=== PATIENT | female | born 1995 | race Caucasian/White ===

== ENCOUNTER → 2017-04-23 | Outpatient (REF) | payer OTHER ==
[2017-04-23 13:24] LABS: AMORPHOUS SEDIMENT SMALL (NEGATIVE); APPEARANCE, URINE CLOUDY (CLEAR); BACTERIA, URINE AUTO 2+ (NEGATIVE); BILIRUBIN, URINE AUTO NEGATIVE (NEGATIVE); BLOOD, URINE BLOOD 2+ (NEGATIVE); COLOR, URINE YELLOW (YELLOW); GLUCOSE, URINE (UA) AUTO NEGATIVE (NEGATIVE); KETONE, URINE AUTO NEGATIVE (NEGATIVE); LEUKOCYTE ESTERASE, URINE AUTO 3+ (NEGATIVE); MUCUS, URINE SMALL (NEGATIVE); NITRITE, URINE AUTO POSITIVE (NEGATIVE); PROTEIN, URINE AUTO 1+ mg/dL (NEGATIVE); RBC, URINE AUTO 9 /HPF (0-3); SPECIFIC GRAVITY URINE AUTO 1.014 (1.002-1.035); SQUAMOUS EPITHELIAL CELL UR AU 0 /HPF (0-6); UROBILINOGEN, URINE AUTO 0.2 mg/dL (0.0-2.0); WBC, URINE AUTO TNTC /HPF (0-3)
== END ==
LOC: M LAB REF 12:48
DX: N39.0 Urinary tract infection, site not specified (principal)

== ENCOUNTER → 2017-12-08 | Outpatient (REF) | payer OTHER ==
[2017-12-08 15:23] LABS: ALBUMIN/GLOBULIN RATIO 1.33 (1.00-1.93); ALKALINE PHOSPHATASE 74 U/L (45-117); ALT/SGPT 21 U/L (12-78); ANION GAP 5 MEQ/L (8-16); AST/SGOT 14 U/L (7-37); BASO % 0.4 % (0.0-1.0); BILIRUBIN,TOTAL 0.1 MG/DL (0.2-1.0); BLOOD UREA NITROGEN 11 MG/DL (7-18); CALCIUM LEVEL 9.1 MG/DL (8.5-10.1); CARBON DIOXIDE LEVEL 27 MEQ/L (21-32); CHLORIDE LEVEL 108 MEQ/L (98-107); CHOLESTEROL LEVEL 121 MG/DL (<200); CHOLESTEROL RISK RATIO 2.326 (<5); CREATININE FOR GFR 0.74 MG/DL (0.55-1.30); EOS # 0.2 10^3/uL (0.0-0.50); EOS % 3.1 % (0.0-3.0); FREE T4 0.91 NG/DL (0.76-1.46); GLOMERULAR FILTRATION RATE > 60.0 (>60); GLUCOSE, FASTING 90 MG/DL (70-100); HDL CHOLESTEROL 52 MG/DL (>40); HEMATOCRIT 42.2 % (36.0-47.0); HEMOGLOBIN 13.9 g/dl (12.0-15.5); IMMATURE GRANULOCYTE % 0.1 % (0-3.0); LDL CHOLESTEROL 61 MG/DL (<100); LYMPH # 2.4 10^3/uL (1.5-6.5); LYMPH % 32.5 % (24.0-44.0); MEAN CORPUSCULAR HEMOGLOBIN 31.4 pg (27.0-33.0); MEAN CORPUSCULAR HGB CONC 32.9 g/dl (32.0-36.5); MEAN CORPUSCULAR VOLUME 95.3 fl (80.0-96.0); MONO # 0.5 10^3/uL (0.0-0.8); MONO % 6.8 % (0.0-5.0); NEUTROPHILS # 4.3 10^3/uL (1.8-7.7); NEUTROPHILS % 57.1 % (36.0-66.0); NON-HDL-C 69 MG/DL; PLATELET COUNT, AUTOMATED 235 10^3/uL (150-450); RED BLOOD COUNT 4.43 10^6/uL (4.00-5.40); RED CELL DISTRIBUTION WIDTH 12.8 % (11.5-14.5); SODIUM LEVEL 140 MEQ/L (136-145); TRIGLYCERIDES LEVEL 42 MG/DL (<150); WHITE BLOOD COUNT 7.5 10^3/uL (4.0-10.0)
[2017-12-08 15:25] LABS: TOTAL 25(OH) VITAMIN D 18.4 NG/ML (30.0-100.0)
== END ==
LOC: M SFHCSACK 09:12
DX: R53.83 Other fatigue (principal); Z13.220 Encounter for screening for lipoid disorders

== ENCOUNTER → 2018-01-16 | Outpatient (CLI) | payer OTHER | LOC: M WUC 10:42 | DX: M25.552 Pain in left hip (principal) | CPT/HCPCS: 73502 ==

== ENCOUNTER → 2018-04-17 | Outpatient (REF) | payer OTHER | LOC: M SFHCSACK 09:25 | PROVIDERS: ATTEND Physician Assistant | DX: E55.9 Vitamin D deficiency, unspecified (principal); Z53.8 Procedure and treatment not carried out for other reasons ==

== ENCOUNTER → 2018-04-21 | Outpatient (CLI) | payer OTHER ==
[2018-04-21 12:22] LABS: BASO % 0.5 % (0.0-1.0); EOS # 0.1 10^3/uL (0.0-0.50); EOS % 1.9 % (0.0-3.0); HEMATOCRIT 39.1 % (36.0-47.0); HEMOGLOBIN 12.8 g/dl (12.0-15.5); LYMPH # 2.1 10^3/uL (1.5-6.5); LYMPH % 33.9 % (24.0-44.0); MEAN CORPUSCULAR HEMOGLOBIN 31.2 pg (27.0-33.0); MEAN CORPUSCULAR HGB CONC 32.7 g/dl (32.0-36.5); MEAN CORPUSCULAR VOLUME 95.4 fl (80.0-96.0); MONO # 0.6 10^3/uL (0.0-0.8); MONO % 10.3 % (0.0-5.0); NEUTROPHILS # 3.3 10^3/uL (1.8-7.7); NEUTROPHILS % 53.2 % (36.0-66.0); PLATELET COUNT, AUTOMATED 228 10^3/uL (150-450); WHITE BLOOD COUNT 6.2 10^3/uL (4.0-10.0)
[2018-04-21 12:49] LABS: ALBUMIN 3.4 GM/DL (3.2-5.2); ALT/SGPT 18 U/L (12-78); BILIRUBIN,TOTAL 0.3 MG/DL (0.2-1.0); BLOOD UREA NITROGEN 8 MG/DL (7-18); CALCIUM LEVEL 8.6 MG/DL (8.5-10.1); CARBON DIOXIDE LEVEL 25 MEQ/L (21-32); CHLORIDE LEVEL 109 MEQ/L (98-107); CREATININE FOR GFR 0.65 MG/DL (0.55-1.30); GLOMERULAR FILTRATION RATE > 60.0 (>60); GLUCOSE, FASTING 86 MG/DL (70-100); POTASSIUM SERUM 4.7 MEQ/L (3.5-5.1); SODIUM LEVEL 140 MEQ/L (136-145); TOTAL 25(OH) VITAMIN D 28.2 NG/ML (30.0-100.0); TOTAL PROTEIN 6.4 GM/DL (6.4-8.2)
== END ==
LOC: M WUC 09:10
PROVIDERS: ATTEND Physician Assistant
DX: E55.9 Vitamin D deficiency, unspecified (principal)

== ENCOUNTER 2020-12-21 23:28 | Emergency (ER) | payer OTHER ==
[~2020-12-21] VITALS: Ht 167.6 cm; Wt 72.7 kg
[2020-12-21 23:29] VITALS: BP 113/62
== END 2020-12-21 23:53 | disposition left against medical advice (07) ==
LOC: M ED 23:28
DX: Z53.21 Procedure and treatment not carried out due to patient leaving prior to being seen by health care provider (principal)

== ENCOUNTER 2020-12-24 13:38 | Emergency (ER) | payer BC, OTHER ==
[~2020-12-24] VITALS: Ht 170.2 cm; Wt 72.1 kg
[2020-12-24 13:39] VITALS: BP 107/53
[2020-12-24] MEDS ORDERED: MULTTAB20 PO (13:47)
--- OUTSIDE RECORDS SUMMARY | 2020-12-24 14:34 | CCD ---
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 11/02/2020 Medications No Data in Section Social History Social History Element Description Concept Effective Date Smoking Status Unknown if ever smoked [id number] Immunizations No Data in Section Vital Signs No Data in Section Procedures Date Concept Id Description Targeted Site Concept Targeted Site Concept Type 10/30/2020 81038 Psychiatric Diagnostic Evaluation (Non-Medical) CPT Patient has no history of implantable de vices Encounters Encounter Start Date End Date Encounter Type Description Diagnosis Di agnosis Desc Location Author First Name Author Last Name Npid Taxonomy Cod e Taxonomy Desc Phone Number Location Addr1 Location Addr2 Location [facility] Location [facility] [id number] 10/30/2020 10/30/2020 31848 Psychiatric Tomasa gnostic Evaluation (Non-Medical) F43.9 Reaction to severe stress, unspecified [facility] Mike Skip [phone] [id number] 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
--- OUTSIDE RECORDS SUMMARY | 2020-12-24 14:34 | CCD ---
Author Author [facility] Organization [facility] Address Unknown Phone Unavailable Care Team Providers Care Case Advocate Name Role Phone Nallely WHITFIELD. INSURANCE RISK SURVEYOR THELMA Unavailable [phone] NAHID, Nallely. INSURANCE RISK SURVEYOR THELMA Unavailable [phone] Nallely WHITFIELD. INSURANCE RISK SURVEYOR THELMA Unavailable [phone] NAHID, Nallely. INSURANCE RISK SURVEYOR THELMA Unavailable [phone] NAHID, A. INSURANCE RISK SURVEYOR THELMA Unavailable [phone] NAHID, Nallely. INSURANCE RISK SURVEYOR THELMA Unavailable [phone] NAHID, Nallely. INSURANCE RISK SURVEYOR THELMA Unavailable [phone] NAHID, Nallely. INSURANCE RISK SURVEYOR THELMA Unavailable [phone] NAHID, A. INSURANCE RISK SURVEYOR THELMA Unavailable [phone] NAHID, Nallely. INSURANCE RISK SURVEYOR THELMA Unavailable [phone] NAHID, Nallely. INSURANCE RISK SURVEYOR THELMA Unavailable [phone] NAHID, Nallely. INSURANCE RISK SURVEYOR THELMA Unavailable [phone] Marialuisa WHITFIELD Unavailable [phone] Marialuisa WHITFIELD Unavailable [phone] Marialuisa WHITFIELD Unavailable [phone] Marialuisa WHITFIELD Unavailable [phone] Skip Mckeon Unavailable Skip Mcekon Unavailable Re-disclosure Warning The records that you are about to access may contain information from federally-assisted alcohol or drug abuse programs. If such information is present, then the following federally mandated warning applies: This information has been disclosed to you from records protected by federal confidentiality rules (42 CFR part 2). The federal rules prohibit you from making any further disclosure of this information unless further disclosure is expressly permitted by the written consent of the person to whom it pertains or as otherwise permitted by 42 CFR part 2. A general authorization for the release of medical or other information is NOT sufficient for this purpose. The Federal rules restrict any use of the information to criminally investigate or prosecute any alcohol or drug abuse patient.The records that you are about to access may contain highly sensitive health information, the redisclosure of which is protected by Article 27-F of the [facility] Public Health law. If you continue you may have access to information: Regarding HIV / AIDS; Provided by facilities licensed or operated by the [facility] Office of Mental Health; or Provided by the [facility] Office for People With Developmental Disabilities. If such information is present, then the following [facility] mandated warning applies: This information has been disclosed to you from confidential records which are protected by state law. State law prohibits you from making any further disclosure of this information without the specific written consent of the person to whom it pertains, or as otherwise permitted by law. Any unauthorized further disclosure in violation of state law may result in a fine or group home sentence or both. A general authorization for the release of medical or other information is NOT sufficient authorization for further disc losure. Family History Family Member Name Family Member Gender Family Member Status Date o f Status Description Data Source(s) Unknown Unknown Problem [facility] ([facility], [facility]) Encounters Encounter Providers Location Date Indications Data Source(s ) Outpatient Attender: THELMA WHITFIELD 12/11 08:23:12 AM EST - 12/22/2020 09:08:01 AM EST [facility] ([facility] ) Psychiatric Diagnostic Evaluation (Non-Medical) Attender: Chris grey Mike [facility] 10/30/2020 09:00:00 AM EDT - 10/30/2020 09:00:00 AM EDT [facility] ([facility]) Attender: Skip Mckeon 10/30/2020 12:00:00 AM EDT [facility] ([facility]) Extended Individual Psychotherapy - 45 min Attender: Benjamin pancho Mckeon [facility] 10/20/2020 09:00:00 AM EDT - 10/20/2020 09:00:00 AM EDT [facility] ([facility]) Attender: Skip Mckeon 10/20/2020 12:00:00 AM EDT [facility] ([facility]) Medications No Information Insurance Providers Payer name Policy type / Coverage type Policy ID Covered green party ID Covered green party's relationship to sanders Policy Sanders Plan Information [facility] P [id number] P [id number] FFS Self Pay [id number] Self [id number] [facility] Blue Cross and Blue Shield [facility] Blue Cross/B [facility] [id number] Self [id number] ANSI-Medicaid [id number] ANSI-Medicaid [id number] [facility] Health Maintenance Organization (HMO) [id number] Self [id number] ANSI-Medicaid [id number] [facility] Health Maintenance Organization (HMO) [id number] Self [id number] ANSI-Medicaid [id number] [facility] O [id number] S [id number] ANSI-Medicaid [id number] ANSI-Medicaid [id number] ANSI-Medicaid [id number] ANSI-Medicaid [id number] ANSI-Medicaid [id number] [facility] [id number] SP [id number] [facility] Commercial [id number] Family Dependen t [employer] STORE [id number] SP [id number] OTHER WORKERS COMPENSATION [id number] SP [id number] [facility] [id number] Self Pay P UNAVAILABLE S UNAVAILA BLE D [facility] [id number] O [id number] [employer] BC-BS PPO [id number] SP [id number] [place] [address] S [id number] O [id number] [facility] [id number] [facility] Health Maintenance Organization ([facility] [id number] Self [id number] Problems, Conditions, and Diagnoses Code Display Name Description Problem Type Effective Dates Data Source(s) F43.9 Reaction to severe stress, unspecified U nspecified Trauma- and Stressor- Related Disorder Condition 10/30/2020 12:00:00 AM EDT [facility] ([facility]) Surgeries/Procedures Procedure Description Date Indications Data Source(s) Psychiatric Diagnostic Evaluation (Non-Medical) 10/30/2020 12:00:00 AM EDT - 10/30/2020 12:00:00 AM EDT [facility] ([facility]) Psychiatric Diagnostic Evaluation (Non-Medical) 2020 12:00:00 AM EDT [facility] ([facility]) Extended Individual Psychotherapy - 45 min 10/20/2020 12:00:00 AM EDT - 10/20/2020 12:00:00 AM EDT [facility] ([facility]) Extended Individual Psychotherapy - 45 min 12:00:00 AM EDT [facility] ([facility]) Results ID Date Data Source [id number] 02/17/2020 12:00:00 AM EST [facility] Name Value Range Interpretation Code Description Data Violet rce(s) Supporting Document(s) SARS coronavirus 2 RNA [Presence] in Res piratory specimen by TERRENCE with probe detection NEGATIVE [facility] This lab was ordered by [facility] [place] and reported by [facility]. ID Date Data Source [id number] 02/17/2020 12:00:00 AM EST [facility] Name Value Range Interpretation Code Description Data Violet rce(s) Supporting Document(s) Carestart Rapid COVID Antigen Test Negative [facility] This lab was reported by [facility] prema. Procedure Social History Code Duration Value Status Description Data Source(s ) Smoking 10/30/2020 12:00:00 AM EDT Unknown if ever smoked comp leted Unknown if ever smoked [facility] ([facility]) Smoking 10/20/2020 12:00:00 AM EDT Unknown if ever smoked comp leted Unknown if ever smoked [facility] ([facility])
--- OUTSIDE RECORDS SUMMARY | 2020-12-24 14:34 | CCD ---
Author Author Bill Mckeon Organization Unknown Address [address] [phone] Phone Care Team Providers Care Wood Stock Blank Handler Name Role Phone MikeBenjaminto PCP Chief Complaint and Reason for Visit Chief Complaint Allergies, Adverse Reactions, Alerts No Data in Section Problem List Concept Problem Description Status Start Date Created Date Resolv ed Date Snomed Code F43.9 Unspecified Trauma- and Stressor-Related Disorder Active 10/24/2020 Medications No Data in Section Social History Social History Element Description Concept Effective Date Smoking Status Unknown if ever smoked [id number] Immunizations No Data in Section Vital Signs No Data in Section Procedures Date Concept Id Description Targeted Site Concept Targeted Site Concept Type 10/20/2020 71822 Extended Individual Psychotherapy - 45 min CPT Patient has no history of implantable de vices Encounters Encounter Start Date End Date Encounter Type Description Diagnosis Di agnosis Desc Location Author First Name Author Last Name Npid Taxonomy Cod e Taxonomy Desc Phone Number Location Addr1 Location Addr2 Location [facility] Location [facility] [id number] 10/20/2020 10/20/2020 44847 Extended Individual Psych otherapy - 45 min F43.9 Reaction to severe stress, unspecified [facility] Mike Skip [phone] [id number] Senior Director [phone] [address] [phone] Plan of Treatment No Data in Section Lab Results No Data in Section Instructions No Data in Section Insurance Providers Insurance Id Policy Effective Date Policy Thru Date Company [employer] [id number] 2020 Marylou kelley Plan 1
[2020-12-24 14:44] LABS: BASO % 0.3 % (0.0-1.0); EOS % 0.1 % (0.0-3.0); HEMATOCRIT 40.2 % (36.0-47.0); HEMOGLOBIN 13.5 g/dl (12.0-15.5); LYMPH # 1.9 10^3/uL (1.5-5.0); LYMPH % 23.6 % (24.0-44.0); MEAN CORPUSCULAR HEMOGLOBIN 32.3 pg (27.0-33.0); MEAN CORPUSCULAR HGB CONC 33.6 g/dl (32.0-36.5); MEAN CORPUSCULAR VOLUME 96.2 fl (80.0-96.0); MONO # 0.6 10^3/uL (0.0-0.8); MONO % 7.6 % (2.0-8.0); NEUTROPHILS # 5.4 10^3/uL (1.5-8.5); NEUTROPHILS % 68.1 % (36.0-66.0); PLATELET COUNT, AUTOMATED 169 10^3/uL (150-450); RED BLOOD COUNT 4.18 10^6/uL (4.00-5.40)
--- NOTE | 2020-12-24 15:42 | REP ---
INDICATION: 6 weeks vaginal bleeding. COMPARISON: None. TECHNIQUE: Transabdominal and transvaginal ultrasound evaluation of the gravid uterus was performed. FINDINGS: 1 LMP 11/08/2020 Today's sono findings, crown lump length of 5 mm = 6 weeks 2 days, MARGARITA (today's sono) = 08/17/2021 Number: 1 Heart Rate: 122 BPM IMPRESSION: Single living intrauterine of 6 weeks 2 days, mean gestational age. The estimated date of delivery is 08/17/2021. <Electronically signed by David Deutsch > 12/24/20 [id number]
== END 2020-12-24 16:44 | disposition home or self-care (01) ==
LOC: M ED 13:38
DX: O46.91 Antepartum hemorrhage, unspecified, first trimester (principal); Z79.899 Other long term (current) drug therapy

== ENCOUNTER → 2020-12-26 | Outpatient (CLI) | payer BC ==
[~2020-12-26] MED LIST: MULTTAB20 PO
== END ==
LOC: M LAB 18:27
PROVIDERS: ATTEND Nurse Practitioner Family
DX: O46.90 Antepartum hemorrhage, unspecified, unspecified trimester (principal); Z3A.00 Weeks of gestation of pregnancy not specified

== ENCOUNTER → 2021-01-11 | Outpatient (CLI) | payer BC ==
[2021-01-11 13:58] LABS: HEMOGLOBIN 11.2 g/dl (12.0-15.5); MEAN CORPUSCULAR HEMOGLOBIN 32.2 pg (27.0-33.0); MEAN CORPUSCULAR HGB CONC 32.9 g/dl (32.0-36.5); MEAN CORPUSCULAR VOLUME 97.7 fl (80.0-96.0); PLATELET COUNT, AUTOMATED 216 10^3/uL (150-450); RED BLOOD COUNT 3.48 10^6/uL (4.00-5.40); WHITE BLOOD COUNT 12.6 10^3/uL (4.0-10.0)
[2021-01-11 15:13] LABS: HEPATITIS C VIRUS ABY INDEX 0.1 INDEX (<0.8); HIV 1&2 SCREEN CENTAUR NEGATIVE (NEGATIVE)
[2021-01-11 16:05] LABS: GC DNA AMPLIFICATION NEGATIVE (NEGATIVE)
== END ==
LOC: M PLALAB 10:50
PROVIDERS: ATTEND Advanced Practice Midwife
DX: Z34.91 Encounter for supervision of normal pregnancy, unspecified, first trimester (principal); Z3A.09 9 weeks gestation of pregnancy

== ENCOUNTER → 2021-03-21 | Outpatient (CLI) | payer BC | LOC: M WHC 08:06 | PROVIDERS: ATTEND Advanced Practice Midwife | DX: Z34.02 Encounter for supervision of normal first pregnancy, second trimester (principal); Z3A.19 19 weeks gestation of pregnancy ==

== ENCOUNTER → 2021-04-23 | Outpatient (CLI) | payer BC | LOC: M WHC 13:56 | PROVIDERS: ATTEND Obstetrics & Gynecology | DX: Z34.02 Encounter for supervision of normal first pregnancy, second trimester (principal); Z3A.23 23 weeks gestation of pregnancy ==

== ENCOUNTER → 2021-05-17 | Outpatient (CLI) | payer BC ==
[2021-05-17 13:08] LABS: HEMATOCRIT 36.6 % (36.0-47.0); HEMOGLOBIN 12.3 g/dl (12.0-15.5); MEAN CORPUSCULAR HEMOGLOBIN 32.8 pg (27.0-33.0); MEAN CORPUSCULAR HGB CONC 33.6 g/dl (32.0-36.5); MEAN CORPUSCULAR VOLUME 97.6 fl (80.0-96.0); PLATELET COUNT, AUTOMATED 187 10^3/uL (150-450); RED BLOOD COUNT 3.75 10^6/uL (4.00-5.40); WHITE BLOOD COUNT 10.3 10^3/uL (4.0-10.0)
[2021-05-17 14:40] LABS: GC DNA AMPLIFICATION NEGATIVE (NEGATIVE)
== END ==
LOC: M PLALAB 10:11
PROVIDERS: ATTEND Obstetrics & Gynecology
DX: Z34.02 Encounter for supervision of normal first pregnancy, second trimester (principal)

== ENCOUNTER → 2021-05-28 | Outpatient (CLI) | payer BC | LOC: M LAB 08:37 | PROVIDERS: ATTEND Obstetrics & Gynecology | DX: O99.810 Abnormal glucose complicating pregnancy (principal) ==

== ENCOUNTER 2021-08-17 15:08 | Outpatient (CLI) | payer BC ==
[~2021-08-17] VITALS: Ht 167.6 cm; Wt 99.5 kg
[2021-08-17] MEDS ORDERED: PEPC1TAB5 PO (15:23)
[2021-08-17 15:25] VITALS: BP 122/66
[2021-08-17] MEDS ORDERED: HOME MED LIST COMPLETE! XX SCH (15:25)
== END 2021-08-17 16:40 | disposition home or self-care (01) ==
LOC: M LDO 15:08
PROVIDERS: ATTEND Specialist
DX: O9A.213 Injury, poisoning and certain other consequences of external causes complicating pregnancy, third trimester (principal); Y92.9 Unspecified place or not applicable; Y93.9 Activity, unspecified; Y99.9 Unspecified external cause status; Z3A.40 40 weeks gestation of pregnancy

== ENCOUNTER 2021-08-18 21:31 | Inpatient (IN) | payer BC ==
[~2021-08-18] VITALS: Ht 167.6 cm; Wt 100.9 kg
[~2021-08-18 21:31] MED LIST changes: +PEPC1TAB5 PO
[2021-08-18 22:14] LABS: HEMATOCRIT 33.2 % (36.0-47.0); HEMOGLOBIN 11.6 g/dl (12.0-15.5); MEAN CORPUSCULAR HEMOGLOBIN 33.2 pg (27.0-33.0); MEAN CORPUSCULAR HGB CONC 34.9 g/dl (32.0-36.5); MEAN CORPUSCULAR VOLUME 95.1 fl (80.0-96.0); PLATELET COUNT, AUTOMATED 161 10^3/uL (150-450); RED BLOOD COUNT 3.49 10^6/uL (4.00-5.40); WHITE BLOOD COUNT 13.1 10^3/uL (4.0-10.0)
[2021-08-18] MEDS: miSOPROStol 50MCG 1/2 TABLET SL SCH (23:04)
[2021-08-19] VITALS (8 sets, daily range): BP systolic 122–161; BP diastolic 61–88
[2021-08-19] MEDS ORDERED: OXYTOCIN 30 UNITS IN 0.9% NaCl 500ML IV BAG (J2590) As Ordered ONE (02:30)
[2021-08-19] MEDS ORDERED: LIDOCAINE 1% MDV 20ML VIAL As Ordered ONE (03:28)
[2021-08-19] MEDS ORDERED: LIDOCAINE 1% MDV 20ML VIAL INFIL ONE ×2 (03:30→03:55)
[2021-08-19] MEDS: OXYTOCIN DRIP 30 UNITS in IV 1 EA IV SCH ×3 (03:35→07:19)
[2021-08-19] MEDS ORDERED: ACETAMINOPHEN 500 MG TAB PO PRN (03:55)
[2021-08-19] MEDS ORDERED: DOCUSATE SODIUM 100MG CAPSULE PO PRN (03:55)
[2021-08-19] MEDS ORDERED: ONDANSETRON 4MG 2ML VIAL IV PRN (03:55)
[2021-08-19] MEDS ORDERED: RHOGAM 300 MCG (1500 IU) INJ (J2790) IM SCH (03:55)
[2021-08-19] MEDS ORDERED: OXYTOCIN DRIP 30 UNITS in IV 1 EA IV ONE (03:55)
[2021-08-19] MEDS ORDERED: DIBUCAINE 1% OINTMENT 30GM TOP PRN (03:55)
[2021-08-19] MEDS ORDERED: IBUPROFEN 600MG TAB PO PRN (03:55)
[2021-08-19] MEDS ORDERED: ACETAMINOPHEN TAB 650MG DOSE (2X325MG) PO PRN (03:55)
[2021-08-19] MEDS ORDERED: METHYLERGONOVINE MALEATE 0.2 MG TAB PO PRN (03:55)
[2021-08-19] MEDS: IBUPROFEN 800 MG TAB PO PRN ×2 (06:00→17:40)
[2021-08-19] MEDS: miSOPROStol 50MCG 1/2 TABLET SL SCH ×2 (07:18→07:20)
[2021-08-19] MEDS: PRENATAL VITAMINS CHEWABLE TABLET PO SCH (09:46)
[2021-08-20 06:01] VITALS: BP 129/78
[2021-08-20] MEDS: PRENATAL VITAMINS CHEWABLE TABLET PO SCH (08:39)
[2021-08-20] MEDS ORDERED: ACET-683 PO (11:13)
[2021-08-20] MEDS ORDERED: IBUP80TA PO (11:13)
[2021-08-21] MEDS ORDERED: MEASLES,MUMPS,RUBELLA VACCINE INJ (MMR-II) (90707) SC.IMMUN ONE (09:00)
== END 2021-08-20 12:40 | disposition home or self-care (01) | DRG 560 ==
LOC: M LDI 21:31 → M OBS 08-19 05:28
PROVIDERS: ADMIT Specialist; ATTEND Specialist
PROC: 3E0DXGC Introduction of Other Therapeutic Substance into Mouth and Pharynx, External Approach (ICD-10-PCS; 2021-08-18)
PROC: 10E0XZZ Delivery of Products of Conception, External Approach (ICD-10-PCS; principal; 2021-08-19)
PROC: 0KQM0ZZ Repair Perineum Muscle, Open Approach (ICD-10-PCS; 2021-08-19)
DX: O48.0 Post-term pregnancy (principal); F17.200 Nicotine dependence, unspecified, uncomplicated; Z37.0 Single live birth; Z3A.40 40 weeks gestation of pregnancy; O99.334 Smoking (tobacco) complicating childbirth; O99.824 Streptococcus B carrier state complicating childbirth; O70.1 Second degree perineal laceration during delivery

== ENCOUNTER 2023-03-09 05:01 | Emergency (ER) | payer BC, OTHER ==
[~2023-03-09 05:01] MED LIST changes: +ACET-683 PO; +IBUP80TA PO
[2023-03-09 06:12] LABS: HCG, SERUM QUALITATIVE POSITIVE (NEGATIVE)
[2023-03-09 06:15] LABS: HCG, SERUM QUANTITATIVE 35702.7 MIU/ML (<4.2)
[2023-03-09 06:44] LABS: BASO # 0.1 10^3/uL (0.0-0.2); BASO % 0.3 % (0.0-1.0); EOS # 0.2 10^3/uL (0.0-0.5); EOS % 1.3 % (0.0-3.0); HEMATOCRIT 36.6 % (36.0-47.0); HEMOGLOBIN 12.4 g/dl (12.0-15.5); LYMPH # 2.9 10^3/uL (1.5-5.0); LYMPH % 19.4 % (24.0-44.0); MEAN CORPUSCULAR HEMOGLOBIN 32.5 pg (27.0-33.0); MEAN CORPUSCULAR HGB CONC 33.9 g/dl (32.0-36.5); MEAN CORPUSCULAR VOLUME 96.1 fl (80.0-96.0); MONO # 1.1 10^3/uL (0.0-0.8); MONO % 7.1 % (2.0-8.0); NEUTROPHILS # 10.6 10^3/uL (1.5-8.5); NEUTROPHILS % 71.6 % (36.0-66.0); PLATELET COUNT, AUTOMATED 255 10^3/uL (150-450); RED BLOOD COUNT 3.81 10^6/uL (4.00-5.40); WHITE BLOOD COUNT 14.9 10^3/uL (4.0-10.0)
[2023-03-09 06:47] LABS: APPEARANCE, URINE CLEAR (CLEAR); BACTERIA, URINE AUTO NEGATIVE (NEGATIVE); BILIRUBIN, URINE AUTO NEGATIVE (NEGATIVE); BLOOD, URINE BLOOD 3+ (NEGATIVE); COLOR, URINE STRAW (YELLOW); GLUCOSE, URINE (UA) AUTO NEGATIVE (NEGATIVE); KETONE, URINE AUTO NEGATIVE (NEGATIVE); LEUKOCYTE ESTERASE, URINE AUTO NEGATIVE (NEGATIVE); NITRITE, URINE AUTO NEGATIVE (NEGATIVE); PROTEIN, URINE AUTO NEGATIVE (NEGATIVE); RBC, URINE AUTO 37 /HPF (0-3); SPECIFIC GRAVITY URINE AUTO 1.006 (1.002-1.035); SQUAMOUS EPITHELIAL CELL UR AU 0 /HPF (0-6); UROBILINOGEN, URINE AUTO 0.2 mg/dL (0.0-2.0); WBC, URINE AUTO 58 /HPF (0-3)
[2023-03-09 07:22] VITALS: BP 114/59; TEMP 97.6; O2SAT 99
== END 2023-03-09 07:24 | disposition home or self-care (01) ==
LOC: M ED 05:01
DX: O26.851 Spotting complicating pregnancy, first trimester (principal); O20.8 Other hemorrhage in early pregnancy; O34.81 Maternal care for other abnormalities of pelvic organs, first trimester; N83.201 Unspecified ovarian cyst, right side; F17.200 Nicotine dependence, unspecified, uncomplicated; Z3A.01 Less than 8 weeks gestation of pregnancy; Z79.810 Long term (current) use of selective estrogen receptor modulators (SERMs); Z79.899 Other long term (current) drug therapy

== ENCOUNTER → 2023-03-20 | Outpatient (CLI) | payer OTHER | LOC: M PLALAB 13:47 | PROVIDERS: ATTEND Specialist | DX: N92.6 Irregular menstruation, unspecified (principal) ==

== ENCOUNTER → 2024-02-18 | Outpatient (CLI) | payer OTHER ==
[2024-02-18 17:33] LABS: HEMATOCRIT 36.9 % (36.0-47.0); HEMOGLOBIN 12.7 g/dl (12.0-15.5); MEAN CORPUSCULAR HEMOGLOBIN 32.8 pg (27.0-33.0); MEAN CORPUSCULAR HGB CONC 34.4 g/dl (32.0-36.5); MEAN CORPUSCULAR VOLUME 95.3 fl (80.0-96.0); PLATELET COUNT, AUTOMATED 208 10^3/uL (150-450); RED BLOOD COUNT 3.87 10^6/uL (4.00-5.40); WHITE BLOOD COUNT 9.2 10^3/uL (4.0-10.0)
[2024-02-18 18:27] LABS: HIV 1&2 SCREEN NEGATIVE (NEGATIVE)
[2024-02-18 18:35] LABS: HEPATITIS C VIRUS ABY INDEX < 0.02 INDEX (<0.8)
[2024-02-18 19:13] LABS: GC DNA AMPLIFICATION NEGATIVE (NEGATIVE)
== END ==
LOC: M PLALAB 15:36
PROVIDERS: ATTEND Specialist
DX: Z34.81 Encounter for supervision of other normal pregnancy, first trimester (principal)

== ENCOUNTER → 2024-04-05 | Outpatient (CLI) | payer OTHER | LOC: M WHC 08:18 | PROVIDERS: ATTEND Obstetrics & Gynecology | DX: Z34.92 Encounter for supervision of normal pregnancy, unspecified, second trimester (principal); Z3A.19 19 weeks gestation of pregnancy ==

== ENCOUNTER → 2024-05-20 | Outpatient (CLI) | payer OTHER ==
[2024-05-20 13:21] LABS: HEMOGLOBIN 11.5 g/dl (12.0-15.5); MEAN CORPUSCULAR HGB CONC 33.8 g/dl (32.0-36.5); MEAN CORPUSCULAR VOLUME 97.7 fl (80.0-96.0); PLATELET COUNT, AUTOMATED 180 10^3/uL (150-450); RED BLOOD COUNT 3.48 10^6/uL (4.00-5.40); WHITE BLOOD COUNT 14.2 10^3/uL (4.0-10.0)
[2024-05-20 13:34] LABS: GLUCOSE CHALLENGE TEST 1 HOUR 123 MG/DL (LESS THAN 140)
[2024-05-20 13:56] LABS: HIV 1&2 SCREEN NEGATIVE (NEGATIVE)
[2024-05-20 14:03] LABS: HEPATITIS C VIRUS ABY INDEX 0.02 INDEX (<0.8)
[2024-05-20 14:11] LABS: Trichomonas vaginalis (AMP) NOT DETECTED (NEGATIVE)
[2024-05-20 14:34] LABS: GC DNA AMPLIFICATION NEGATIVE (NEGATIVE)
== END ==
LOC: M PLALAB 08:23
PROVIDERS: ATTEND Obstetrics & Gynecology
DX: Z34.92 Encounter for supervision of normal pregnancy, unspecified, second trimester (principal)

== ENCOUNTER 2024-08-21 08:35 | Inpatient (IN) | payer OTHER ==
[2024-08-21] VITALS (31 sets, daily range): BP systolic 84–137; BP diastolic 47–90; O2SAT 97
[~2024-08-21] VITALS: Ht 167.6 cm; Wt 101.6 kg
[2024-08-21] MEDS ORDERED: OXYTOCIN DRIP 30 UNITS in IV 1 EA IV PRN ×3 (09:50)
[2024-08-21] MEDS ORDERED: OXYTOCIN INJ 10UNITS/ML 1ML VIAL IV PRN (09:50)
[2024-08-21] MEDS ORDERED: OXYTOCIN INJ 10UNITS/ML 1ML VIAL IM PRN (09:50)
[2024-08-21] MEDS ORDERED: LR 1,000 ML IV SCH (09:50)
[2024-08-21] MEDS ORDERED: CARBOPROST TROMETHAMINE 250 MCG/ML AMP IM PRN (09:50)
[2024-08-21] MEDS ORDERED: TRANEXAMIC ACID INJection 1,000 MG in NS 100 ML IV PRN (09:50)
[2024-08-21] MEDS ORDERED: LIDOCAINE 1% MDV 20 ML VIAL INFIL PRN (09:50)
[2024-08-21] MEDS ORDERED: METHYLERGONOVINE MALEATE 0.2 MG/ML 1 ML VIAL IM PRN (09:50)
[2024-08-21] MEDS ORDERED: OXYTOCIN DRIP 30 UNITS in IV 1 EA IV SCH (09:50)
[2024-08-21 10:29] LABS: PLATELET COUNT, AUTOMATED 189 10^3/uL (150-450)
[2024-08-21 11:19] LABS: HIV 1&2 SCREEN NEGATIVE (NEGATIVE)
[2024-08-21 11:27] LABS: HEPATITIS C VIRUS ABY INDEX < 0.02 INDEX (<0.8)
[2024-08-21] MEDS: LACTATED RINGER'S 1000 ML IV STA (12:39)
[2024-08-21] MEDS ORDERED: NALOXONE INJ 0.4 MG/1 ML VIAL IV PRN (13:10)
[2024-08-21] MEDS ORDERED: EPIDURAL/PCA KEYS XX PRN ×2 (13:10→14:50)
[2024-08-21] MEDS ORDERED: diphenhydrAMINE 50 MG/ML VIAL IV PRN (13:10)
[2024-08-21] MEDS ORDERED: FENTANYL 2 MCG/ML ROPIVACAINE 0.2% IN 0.9% NACL 100 ML IVBAG As Ordered ONE (13:10)
[2024-08-21] MEDS ORDERED: ONDANSETRON 4MG 2ML VIAL IV PRN (13:10)
[2024-08-21] MEDS: FENTANYL/ROPIVACAINE/NACL BAG 100 ML EPIDURAL SCH (13:33)
[2024-08-21] MEDS ORDERED: LR 500 ML IV PRN (14:50)
[2024-08-21] MEDS: LR 500 ML IV PRN (15:32)
[2024-08-21] MEDS: LR 1,000 ML IV SCH (15:33)
[2024-08-21 17:11] LABS: CORD GAS ABE A -9.8; CORD GAS HCO3 A 18.5 MMOL/L; CORD GAS O2 SAT A 70.6 %; CORD GAS PCO2 A 49.3 mmHg; CORD GAS PH A 7.192 UNITS; CORD GAS PO2 A 32.7 mmHg; CORD GAS SBC A 16.2 MMOL/L; CORD GAS TCO2 A 20.0 MMOL/L
[2024-08-21 17:15] LABS: CORD GAS ABE V -7.5; CORD GAS HCO3 V 19.0 MMOL/L; CORD GAS O2 SAT V 79.6 %; CORD GAS PCO2 V 42.2 mmHg; CORD GAS PH V 7.272 UNITS; CORD GAS PO2 V 35.0 mmHg; CORD GAS SBC V 18.1 MMOL/L; CORD GAS TCO2 V 20.3 MMOL/L
[2024-08-21] MEDS ORDERED: DIBUCAINE 1% OINTMENT 30 GM TOP PRN (17:15)
[2024-08-21] MEDS ORDERED: MOM 30 ML SUSPENSION UDC PO PRN (17:15)
[2024-08-21] MEDS ORDERED: ANUSOL HC CREAM 30 GM TOP PRN (17:15)
[2024-08-21] MEDS ORDERED: RHOGAM 300MCG (1500IU) INJ IM SCH (17:15)
[2024-08-21] MEDS ORDERED: METHYLERGONOVINE MALEATE 0.2 MG TAB PO PRN (17:15)
[2024-08-21] MEDS: ACETAMINOPHEN 500 MG TAB PO PRN (21:41)
[2024-08-22] MEDS: IBUPROFEN 800 MG TAB PO PRN (03:42)
[2024-08-22 05:46] VITALS: BP 110/62; O2SAT 100
[2024-08-22] MEDS: PRENATAL VITAMINS CHEWABLE TABLET PO SCH (07:52)
[2024-08-22] MEDS: DOCUSATE SODIUM 100 MG CAPSULE PO PRN (07:52)
[2024-08-23] MEDS ORDERED: MEASLES,MUMPS,RUBELLA VACCINE INJ (MMR-II) SC.IMMUN ONE (09:00)
== END 2024-08-22 16:50 | disposition home or self-care (01) | DRG 540 ==
LOC: M LDO 08:35 → M LDI 09:52 → M OBS 20:21
PROVIDERS: ADMIT Obstetrics & Gynecology; ATTEND Obstetrics & Gynecology
PROC: 10D00Z1 Extraction of Products of Conception, Low, Open Approach (ICD-10-PCS; principal; 2024-08-21)
PROC: 0KQM0ZZ Repair Perineum Muscle, Open Approach (ICD-10-PCS; 2024-08-21)
PROC: 10907ZC Drainage of Amniotic Fluid, Therapeutic from Products of Conception, Via Natural or Artificial Opening (ICD-10-PCS; 2024-08-21)
DX: O70.1 Second degree perineal laceration during delivery (principal); Z37.0 Single live birth; Z3A.38 38 weeks gestation of pregnancy